=== PATIENT | female | born 1995 | race Caucasian/White ===

== ENCOUNTER 2019-08-12 09:25 | Inpatient (IN) | payer MEDICAID, SELFPAY ==
[2019-08-12] VITALS (23 sets, daily range): BP systolic 83–120; BP diastolic 45–81; PULSE 75–116; RESP 16; TEMP 36.1–37.3; BMI 32.3
[2019-08-12] MEDS: Lactated Ringers 1,000 ML 500 ML IV (09:35)
[2019-08-12] MEDS: Oxytocin 30 units/NS 500 ml 30 UNITS/500 ML IV.SOLN IV (10:07)
[2019-08-12 10:25] LABS: Absolute Lymphocyte Count 1.38 X10^3/uL (0.83-4.51); Absolute Neutrophil Count 12.9 X10^3/uL (2.0-7.7); Basophil# 0.03 X10^3/uL; Basophil% 0.2 % (0-1); Eosinophil# 0.01 X10^3/uL; Eosinophils% 0.1 % (0-5); Lymphocyte # 1.38 X10^3/ul (4.0); Mean Corp Hgb Conc 35.1 g/dL (32-36); Mean Corpuscular Hgb 32.9 pg (27.0-32.0); Mean Corpuscular Volume 93.7 fL (81-99); Mean Platelet Vol. 11.6 fl (6.2-12.0); Monocyte# 0.92 X10^3/uL; NRBC Flagged by Analyzer 0 % (0-5); Neutrophil # 12.92 X10^3/uL (2.7-7.7); Neutrophil % 84.1 % (47-70); Platelet Count 197 K/mm3 (150-450); RBC Distribution Width CV 12.8 % (11.6-14.6); RBC Distribution Width SD 44.2 fl (35.1-43.9); Red Blood Count 3.95 M/mm3 (4.2-5.4); White Blood Count 15.4 K/mm3 (4.4-11.0)
--- NOTE | 2019-08-12 10:53 | PCM.HP.OB ---
History Date of Admission: 08/12/19 Final JOVITA: 07/28/19 Gestational age: 42 Weeks and 1 Days History of this : This is a 24 year-old, @ 42.1 wks, care with animal trapper planning home - called to reports she was tired and wanted to come to hospital to continue labor. upon arrival she was 4-5cm with membranes intact. pt denies any complications with or medical conditions. pt has had routine care with animal trapper. Allergies tioconazole [From Monistat 1 (tioconazole)] Allergy (Verified 08/12/19 09:50) Rash Home Medications: Home Medications Pnv No.95/Ferrous Fum/Folic AC [ Caplet] 1 ea PO 08/12/19 Smoking Status: Never smoker Alcohol: None Number of Fetus(es): 1 History Past Pregnancies: Past Pregnancies Delivery Date Name GA/ Weeks Outcome Route Wt Sex Labor Length Anesthesia Delivery Location Provider FOB Expected Infant Delivery Method: Spontaneous Vaginal Physical Exam General: Alert, Oriented x3 Abdomen: Soft, Non Tender, Gravid Neurological: Cranial nerves II-XII grossly intact GLASS BLOWING LATHE OPERATOR: Normal external genitalia Estimated gestational size: Appropriate for gestational size Presentation: Cephalic Cervix Dilation (cm): 6 Station: -1 Effacement (%): 90 Assessment/Plan This is a 24 year-old, @ 42.1 wks- care with Plate Glass Installer Helper was laboring at home but tired and decided she wanted to come to hospital for delivery. NO care with Physician office. 1) admit to L&D 2) monitor FHR/TOCO 3) rapid GBS 4) T&S and routine admission labs 5) chart reviewed from CODE ENFORCEMENT INSPECTOR services 6) AROM performed- CLEAR 7) PITOCIN for augmentation 8) Epidural if requested
[2019-08-12] MEDS: fentaNYL 100 MCG/2 ML Ampul IV (11:03)
[2019-08-12 12:15] LABS: Group B Strep DNA By PCR Negative (Negative)
[2019-08-12 12:16] LABS: Internal Control PASS; Probe Check PASS; Specimen Processing Control PASS
[2019-08-12] MEDS: Lactated Ringers 1,000 ML 200 ML IV (12:23)
[2019-08-12 12:55] LABS: Chlamydia Trachomatis by PCR Negative (Negative); Neisserai gonorrhoeae by PCR Negative (Negative); Probe Check PASS; Sample Adequacy Control PASS; Specimen Processing Control PASS
[2019-08-12] MEDS: Oxytocin 30 units/NS 500 ml 30 UNITS/500 ML IV.SOLN 334 UNITS IV (15:15)
--- NOTE | 2019-08-12 15:33 | PCM.OPRPT ---
Vaginal Delivery Maternal Presentation: Active Labor Amniotic Membrane Rupture Type: Artificial Amniotic Fluid Description: Clear Final JOVITA: 07/28/19 Gestational age: 42 Weeks and 1 Days Date of Procedure: 08/12/19 Pre-Operative Diagnosis: Post Term gestation, Labor Post-Operative Diagnosis: Same, Live male infant Surgery/ Procedure Performed: Spontaneous Vaginal Delivery Type of Anesthesia: None Description of Procedure: transfer of care from Health Unit Coordinator services at 42.1 weeks- Pt was tired and wanted to come to hospital- Pt admitted pitocin started for augmentation with AROM- Progressed to 10cm- good maternal pushing efforts. head delivered with gentle downward traction spontaneous delivery of infant shoulders followed by the rest the infant's body. The infant was vigorous and placed on the mom's chest for immediate skin the skin. Delayed cord clamping was performed. Terminal meconium was appreciated. Apgars were 9 9. First time was 1513 on August 12, 2019. Placenta delivered intact without complication. First-degree vaginal and first-degree perineal lacerations were appreciated. Lidocaine 1% plain was given and lacerations were repaired using #3 rapide. Presentation: Vertex Placental Delivery Description: Spontaneous Placenta Disposition: [facility] Cord Vessel Description: 3 Vessels Cord Entanglement: None Estimated Blood Loss: 300 Infant A gender: Male (1 minute): 9 (5 minute): 9 Episiotomy Description: None Laceration: Perineal Extension/lac, Vaginal Extension/lac, 1st degree Medications given after delivery: IV Pitocin Complications: None
[2019-08-12] MEDS: Ibuprofen 600 MG Tablet PO (19:29)
--- NOTE | 2019-08-12 19:57 | NURSING ---
Parents declined bath; stated they would do it at home. This RN explained bathing procedure and cord care to parents.
[2019-08-12] MEDS: Senna/Docusate Sodium 1 Tablet PO (20:38)
[2019-08-13] VITALS (11 sets, daily range): BP systolic 89–118; BP diastolic 51–64; PULSE 73–85; RESP 14–16; TEMP 36.6–37.4
[2019-08-13] MEDS: Ibuprofen 600 MG Tablet PO ×4 (02:23→20:47)
[2019-08-13] MEDS: oxyCODONE 5 MG Tablet PO (03:14)
--- NOTE | 2019-08-13 07:55 | PCM.PN.OB ---
Subjective: pt seen at bedside, doing well. pt reports good pain control. lochia mild. Breast feeding well. - Physical Exam Vitals/I&O's: Vital Signs Temp Pulse Resp BP 98.0 F 83 14 98/57 L 08/13/19 03:56 08/13/19 03:56 08/13/19 03:56 08/13/19 03:56 Oxygen Delivery Method Room Air Weight: 70.307 kg Body Mass Index (BMI) 32.3 Intake and Output for Last 24 Hours 08/11/19 08/12/19 08/13/19 23:59 23:59 23:59 Intake Total 2508.60 / 2508.60 Output Total 700 / 700 Balance 1808.60 / 1808.60 General: Alert, Oriented x3 Abdomen: Soft, Non Tender, Non-Distended, - - fundus firm Extremities: No Calf Tenderness Laboratory Results 08/12/19 09:35: WBC 15.4 H, RBC 3.95 L, Hgb 13.0, Hct 37.0, MCV 93.7, MCH 32.9 H, MCHC 35.1, RDW Std Deviation 44.2 H, RDW Coeff of Feliz 12.8, Plt Count 197, MPV 11.6, Immature Gran % (Auto) 0.600, Neut % (Auto) 84.1 H, Lymph % (Auto) 9.0 L, Colquitt % (Auto) 6.0, Eos % (Auto) 0.1, Baso % (Auto) 0.2, Absolute Neuts (auto) 12.9 H, Absolute Lymphs (auto) 1.38, Nucleated RBC % 0 08/12/19 09:35: Blood Type A POSITIVE, Antibody Screen NEGATIVE 08/12/19 09:40: Chlam trachomat DNA PCR Negative, N.gonorrhoeae DNA (PCR) Negative 08/12/19 09:40: Group B Strep DNA Negative, Specimen Comment Not Reportable Current Medications Acetaminophen (Tylenol) 1,000 mg PO Q8H PRN PRN PRN Reason: Pain Score 1-3/10 Last Admin: 08/13/19 00:00 Dose: 1,000 mg Documented by: Bisacodyl (Dulcolax) 10 mg RECTAL UD PRN PRN Reason: If no BM Dibucaine (Dibucaine) 1 applic TOPICAL TID PRN PRN; Protocol PRN Reason: Discomfort Hydrocortisone (Hytone) 1 applic TOPICAL TID PRN PRN; Protocol PRN Reason: Discomfort Ibuprofen (Motrin) 600 mg PO Q6H PRN PRN PRN Reason: Pain Score 1-3/10 Last Admin: 08/13/19 02:23 Dose: 600 mg Documented by: Methylergonovine Maleate (Methergine) 0.2 mg IM X1 PRN PRN Reason: Excess bleeding/uterine atony Ondansetron HCl (Zofran) 4 mg IV Q4H PRN PRN PRN Reason: Nausea Oxycodone HCl (Oxyir) 5 - 10 mg PO Q4H PRN PRN PRN Reason: Pain Score 4-10/10 Last Admin: 08/13/19 03:14 Dose: 5 mg Documented by: Senna/Docusate Sodium (Senokot-S, Isamar-Colace) 1 - 2 tablet PO DAILY PRN PRN PRN Reason: Constipation Last Admin: 08/12/19 20:38 Dose: 1 tablet Documented by: Simethicone (Mylicon) 80 mg PO PCHS PRN PRN Reason: Indigestion/Stomach pain Sodium Chloride () 5 - 15 ml IV UD PRN PRN Reason: SALINE FLUSH Medical Necessity - Tobacco Use Smoking Status: Never smoker Assessment/Plan PPD#1, doing well routine care pain mgmt dc home
--- NOTE | 2019-08-13 07:57 | DCINST_ITS ---
Discharge Diet: No Restrictions Discharge Activity: Return to Normal Activity, May not drive while taking narcotic pain medications., May Shower May resume sexual activity in: 4-6 weeks Additional Activity Instructions:: Nothing in the vagina for 4-6 weeks. You may return to work/school in 6 weeks. Call your doctor if your incision/area has: Continuous Slow Oozing, Sudden Increased Bleeding, Increased Pain/ Swelling, Increased Redness, Foul Smelling Discharge Additional Instructions: If you experience any of the following, contact your healthcare provider. * Bleeding that soaks a pad every hour for 2 hours * Fever 100.4 or higher * Unrelieved incision or abdominal pain * Swelling, redness, discharge or bleeding from your incision or episiotomy site * Your incision begins to separate * Problems urinating (including inability to urinate or burning while urinating). * Visual changes * Severe headache * Flu-like symptoms * Pain or redness in one of both of your breasts * Pain, warmth, tenderness or swelling in your legs, especially the calf area * Frequent nausea and vomiting * Symptoms of depression or anxiety If you experience any of the following, call 911 or go to the nearest Emergency Room. * Chest pain * Problems breathing * Seizure activity * Partial or complete paralysis of a body part, slurred speech, weakness or drooping of the face, or a sudden inability to walk or hold your balance Allergies/Adverse Reactions: Allergies tioconazole [From Monistat 1 (tioconazole)] Allergy (Verified 08/12/19 09:50) Rash Medications to take at Discharge Pnv No.95/Ferrous Fum/Folic AC [ Caplet] 1 ea PO 08/12/19 Ibuprofen [Motrin] 600 mg PO Q6H PRN PRN #30 tab 08/13/19 The following prescriptions were given: Ibuprofen [Motrin] 600 mg PO Q6H PRN PRN #30 tab PRN Reason: Pain Score 1-3/10 Transmission Status: Pending to [facility] Please Follow Up With: Ama Madison MD When: Call to make an appointment with your doctor in 1-2 weeks. [facility]- [phone] Primary Care Physician: PAIGE STARKEY [Other] Test Results: Test results from this visit will be discussed in further detail at your follow- up appointment, if applicable.
--- NOTE | 2019-08-13 07:57 | PCM.DCVAG ---
Discharge Diet: No Restrictions Discharge Activity: Return to Normal Activity, May not drive while taking narcotic pain medications., May Shower May resume sexual activity in: 4-6 weeks Additional Activity Instructions:: Nothing in the vagina for 4-6 weeks. You may return to work/school in 6 weeks. Call your doctor if your incision/area has: Continuous Slow Oozing, Sudden Increased Bleeding, Increased Pain/ Swelling, Increased Redness, Foul Smelling Discharge Additional Instructions: If you experience any of the following, contact your healthcare provider. Bleeding that soaks a pad every hour for 2 hours Fever 100.4 or higher Unrelieved incision or abdominal pain Swelling, redness, discharge or bleeding from your incision or episiotomy site Your incision begins to separate Problems urinating (including inability to urinate or burning while urinating). Visual changes Severe headache Flu-like symptoms Pain or redness in one of both of your breasts Pain, warmth, tenderness or swelling in your legs, especially the calf area Frequent nausea and vomiting Symptoms of depression or anxiety If you experience any of the following, call 911 or go to the nearest Emergency Room. Chest pain Problems breathing Seizure activity Partial or complete paralysis of a body part, slurred speech, weakness or drooping of the face, or a sudden inability to walk or hold your balance Allergies/Adverse Reactions: Allergies tioconazole [From Monistat 1 (tioconazole)] Allergy (Verified 08/12/19 09:50) Rash Medications to take at Discharge Pnv No.95/Ferrous Fum/Folic AC [ Caplet] 1 ea PO 08/12/19 Ibuprofen [Motrin] 600 mg PO Q6H PRN PRN #30 tab 08/13/19 The following prescriptions were given: Ibuprofen [Motrin] 600 mg PO Q6H PRN PRN #30 tab PRN Reason: Pain Score 1-3/10 Transmission Status: [facility] Please Follow Up With: Ama Madison MD When: Call to make an appointment with your doctor in 1-2 weeks. [facility]- [phone] Primary Care Physician: PAIGE STARKEY [Other] Test Results: Test results from this visit will be discussed in further detail at your follow-up appointment, if applicable.
[2019-08-13] MEDS: Acetaminophen 500 MG Tablet 1000 MG PO ×2 (11:52)
[2019-08-14 01:17] VITALS: TEMP 36.3
[2019-08-14 01:18] VITALS: BP 96/52; PULSE 71
[2019-08-14] MEDS: Acetaminophen 500 MG Tablet 1000 MG PO ×2 (01:24→10:34)
[2019-08-14 02:00] VITALS: BP 96/52; PULSE 71; RESP 14; TEMP 36.6
[2019-08-14] MEDS: Ibuprofen 600 MG Tablet PO (05:11)
[2019-08-14 08:20] VITALS: BP 111/63; PULSE 78; RESP 14; TEMP 36.9
[2019-08-14 08:33] VITALS: BP 111/63; PULSE 78; TEMP 36.9
--- NOTE | 2019-08-14 09:11 | PCM.PN.OB ---
Subjective: Doing well per patient and nursing staff. Ambulating and taking PO without difficulty. Voiding and passing flatus. well. Pain controlled. Lochia normal. Planning D/C home today, baby discharged. - Physical Exam Vitals/I&O's: Vital Signs Temp Pulse Resp BP 98.4 F 78 14 111/63 08/14/19 08:33 08/14/19 08:33 08/14/19 08:20 08/14/19 08:33 Oxygen Delivery Method Room Air Weight: 155 lb Body Mass Index (BMI) 32.3 Intake and Output for Last 24 Hours 08/12/19 08/13/19 08/14/19 23:59 23:59 23:59 Intake Total 2508.60 / 2508.60 Output Total 700 / 700 Balance 1808.60 / 1808.60 General: Alert, Oriented x3, Cooperative HEENT: Atraumatic, Normocephalic Neck: Trachea Midline Lungs: Clear to auscultation, Normal air movement, No rhonchi, No wheeze Cardiovascular: Regular rate, Regular Rhythm, No murmurs Abdomen: Bowel Sounds Present, Non Tender - fundus firm 2 below U Extremities: No edema - Moncho's negative Psych/Mental Status: Normal Affect, Appropriate Current Medications Acetaminophen (Tylenol) 1,000 mg PO Q8H PRN PRN PRN Reason: Pain Score 1-3/10 Last Admin: 08/14/19 01:24 Dose: 1,000 mg Documented by: Bisacodyl (Dulcolax) 10 mg RECTAL UD PRN PRN Reason: If no BM Dibucaine (Dibucaine) 1 applic TOPICAL TID PRN PRN; Protocol PRN Reason: Discomfort Hydrocortisone (Hytone) 1 applic TOPICAL TID PRN PRN; Protocol PRN Reason: Discomfort Ibuprofen (Motrin) 600 mg PO Q6H PRN PRN PRN Reason: Pain Score 1-3/10 Last Admin: 08/14/19 05:11 Dose: 600 mg Documented by: Methylergonovine Maleate (Methergine) 0.2 mg IM X1 PRN PRN Reason: Excess bleeding/uterine atony Ondansetron HCl (Zofran) 4 mg IV Q4H PRN PRN PRN Reason: Nausea Oxycodone HCl (Oxyir) 5 - 10 mg PO Q4H PRN PRN PRN Reason: Pain Score 4-10/10 Last Admin: 08/13/19 03:14 Dose: 5 mg Documented by: Senna/Docusate Sodium (Senokot-S, Isamar-Colace) 1 - 2 tablet PO DAILY PRN PRN PRN Reason: Constipation Last Admin: 08/12/19 20:38 Dose: 1 tablet Documented by: Simethicone (Mylicon) 80 mg PO PCHS PRN PRN Reason: Indigestion/Stomach pain Sodium Chloride () 5 - 15 ml IV UD PRN PRN Reason: SALINE FLUSH Medical Necessity - Tobacco Use Smoking Status: Never smoker Assessment/Plan A:PPD #3 P: 1) Routine and instructions 2) D/C home 3) Offered 2 week and 6 week visit. 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 If she does not follow up with us, recommended 6 week visit.
== END 2019-08-14 10:50 | disposition home or self-care (01) | DRG 560 ==
PROVIDERS: Admitting Provider Obstetrics & Gynecology; Referring Provider Obstetrics & Gynecology; Visit Provider Obstetrics & Gynecology
DX: O48.0 Post-term pregnancy (principal); O75.81 Maternal exhaustion complicating labor and delivery; O77.0 Labor and delivery complicated by meconium in amniotic fluid; O70.0 First degree perineal laceration during delivery; Z3A.42 42 weeks gestation of pregnancy; Z37.0 Single live birth
CPT/HCPCS: 59025; 59050; 85025; 86850; 86900; 86901; 87081; 87491; 87591; 87653; 99218; J7120; G0378